=== PATIENT | male | born 1965 | race Caucasian/White ===

== ENCOUNTER 2018-10-19 11:47 | Emergency (ER) | payer OTHER ==
[~2018-10-19] VITALS: Wt 97.7 kg
[~2018-10-19 11:47] MED LIST: CYCL10TA7 PO; IBUP-1542 PO; ONDA4TAB35 PO; TRAM50TA2 PO
[2018-10-19 12:10] VITALS: BP 145/84; PULSE 79; RESP 20
[2018-10-19] MEDS ORDERED: KETOROLAC 30 MG INJ IM STA (14:04)
[2018-10-19] MEDS ORDERED: DEXAMETHASONE 10 MG/ML 1 ML INJ IM ONE (14:30)
== END 2018-10-19 15:17 | disposition home or self-care (01) ==
LOC: FTE 11:47
DX: M54.5 Low back pain (principal)
CPT/HCPCS: 96372; J1100; J1885; Z7502